=== PATIENT | male | born 1970 | race Caucasian/White ===

== ENCOUNTER 2021-04-14 12:04 | Emergency (ER) | payer OTHER, SELFPAY ==
[2021-04-14] VITALS (13 sets, daily range): BP systolic 115–142; BP diastolic 76–95; PULSE 74–106; RESP 16–18; TEMP 37.1; O2SAT 95–99; BMI 31.8
[2021-04-14] MEDS: MORPHINE 4 MG/ML INJ IV (12:34)
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
[2021-04-14 12:43] LABS: Add Manual Diff / Slide Review NO; Basophils Absolute Auto 100 /uL (0-100); Basophils Percent Auto 0.6 % (0-2); Eosinophils Absolute Auto 100 /uL (0-450); Eosinophils Percent Auto 0.4 % (2-4); Hematocrit 49.9 % (41-53); Hemoglobin 16.9 g/dL (13.5-17.5); Lymphocytes Absolute Auto 1000 /uL (1100-4500); Lymphocytes Percent Auto 7.9 % (25-40); Mean Corpuscular Volume 91.4 fL (80-100); Monocytes Absolute Auto 800 /uL (0-900); Neutrophils Absolute Auto 10900 /uL (1500-7000); Neutrophils Percent Auto 85.1 % (50-75); Platelet Count 182 X10^3/uL (150-400); Red Blood Cell Count 5.45 X10^6/uL (4.5-5.9); Red Cell Distribution Width 13.2 % (11.6-14.8); White Blood Cell Count 12.8 X10^3/uL (4.5-11.0)
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
[2021-04-14 12:53] LABS: Alanine Aminotransferase 133 IU/L (<50); Albumin 4.9 g/dL (3.5-5.0); Albumin Globulin Ratio 1.4 (1.0-2.8); Alkaline Phosphatase 118 U/L (38-126); Aspartate Aminotransferase 92 IU/L (17-59); BUN Creatinine Ratio 14.5 (6-22); Bilirubin Total 0.8 mg/dL (0.2-1.3); Blood Urea Nitrogen 17 mg/dL (9-20); Calcium 10.1 mg/dL (8.4-10.2); Carbon Dioxide 28 mmol/L (22-32); Chloride 103 mmol/L (98-107); Estimated Glomerular Filt Rate > 60.0 mL/min (>60); Globulin 3.6 g/dL (1.7-4.1); Glucose 106 mg/dL (70-100); HEMOLYSIS 15 (0-50); Lipase 138 U/L (23-300); Potassium 4.5 mmol/L (3.4-5.1); Sodium 139 mmol/L (137-145); Total Protein 8.5 g/dL (6.3-8.2)
[2021-04-14] MEDS: SODIUM CHLORIDE 0.9% 1,000 ML 150 ML IV (13:11)
[2021-04-14] MEDS: KETOROLAC 30 MG/ML VIAL IV (14:26)
== END 2021-04-14 16:11 | disposition home or self-care (01) ==
PROVIDERS: Emergency Provider Emergency Medicine
DX: S20.211A Contusion of right front wall of thorax, initial encounter (principal); S50.01XA Contusion of right elbow, initial encounter; S60.221A Contusion of right hand, initial encounter; Z87.891 Personal history of nicotine dependence; V18.4XXA Pedal cycle driver injured in noncollision transport accident in traffic accident, initial encounter; Y93.55 Activity, bike riding
CPT/HCPCS: 36415; 71260; 73080; 73130; 74177; 80053; 81003; 83690; 85025; 86850; 86900; 86901; 96361; 96374; 96375; 99284; 99285; J1885; J2270

== ENCOUNTER → 2024-05-13 13:36 | Outpatient (CLI) | payer OTHER, SELFPAY ==
[2024-05-13 14:01] LABS: BUN Creatinine Ratio 10.9 (6-22); Blood Urea Nitrogen 12 mg/dL (9-20); Calcium 9.4 mg/dL (8.4-10.2); Carbon Dioxide 24 mmol/L (22-32); Chloride 103 mmol/L (98-107); Cholesterol 206 mg/dL (140-199); Estimated Glomerular Filt Rate > 60 mL/min (>60); Glucose 98 mg/dL (70-100); HDL Cholesterol 92 mg/dL (40-60); HEMOLYSIS < 15 (0-50); LDL Cholesterol Calculated 100 mg/dL (<100); Sodium 137 mmol/L (137-145); Triglycerides 71 mg/dL (35-150)
[2024-05-13 14:32] LABS: Prostate Specific Antigen 0.941 ng/mL (0.10-4.00)
== END ==
LOC: LAB 13:36
PROVIDERS: PCP Nurse Practitioner Family; Referring Provider Nurse Practitioner Family; Visit Provider Nurse Practitioner Family
DX: Z13.220 Encounter for screening for lipoid disorders (principal); M10.9 Gout, unspecified; Z68.30 Body mass index [BMI] 30.0-30.9, adult
CPT/HCPCS: 36415; 80048; 80061; 83036; 84153